=== PATIENT | male | born 1965 | race Caucasian/White ===

== ENCOUNTER 2017-03-30 07:42 | Day surgery (SDC) | payer BC ==
[2017-03-26 09:06] LABS: HEMATOCRIT 46.6 % (40.0-51.0)
[2017-03-26 09:16] LABS: BUN (BLOOD UREA NITROGEN) 18 MG/DL (6-23); CHLORIDE, SERUM 106 MMOL/L (96-112); CO2 (CARBON DIOXIDE) 26 MMOL/L (24-34); CREATININE 0.96 MG/DL (0.70-1.30); GFR AFRICAN AMERICAN 104 ML/MIN (>=60); GFR NON AFRICAN AMERICAN 90 ML/MIN (>=60); GLUCOSE, SERUM 90 MG/DL (60-99); SODIUM, SERUM 141 MMOL/L (135-148)
[2017-03-26 09:17] LABS: CALCIUM, SERUM 9.6 MG/DL (8.5-10.4); POTASSIUM, SERUM 4.7 MMOL/L (3.5-5.3)
[2017-03-27 11:08] LABS: A/G RATIO 1.8 (0.7-1.9); ALBUMIN 4.8 G/DL (3.5-5.0); ALKALINE PHOSPHATASE 56 U/L (45-117); GLOBULIN 2.7 G/DL (2.5-4.1); SGOT(AST) 17 U/L (5-40); SGPT(ALT) 25 U/L (5-65); TOTAL BILIRUBIN 0.4 MG/DL (0-1.2); TOTAL PROTEIN 7.5 G/DL (6.0-8.5)
--- NOTE | ~2017-03-30 | OP ---
Record Of Operation [facility] [address] [place]. [address] NAME: ISIDRA DEJESUS : 63 STATUS : [facility]#: [id number] AGE: 52 ADM/REG DATE : 03/30/17 MR#: [id number] REPORT SERV DATE: 03/31/17 DICTATED BY: JOSE HBARDWAJ DATE: 03/31/17 REPORT STATUS : Draft TRANSCRIBED BY: MODL DATE: 03/31/17 DATE OF PROCEDURE: 03/30/2017 PREOPERATIVE DIAGNOSES: 1. Left inguinal hernia. 2. Chronic cholecystitis with cholelithiasis. POSTOPERATIVE DIAGNOSES: 1. Left inguinal hernia. 2. Right inguinal hernia. 3. Chronic cholecystitis with cholelithiasis. PROCEDURES: 1. Laparoscopic reduction and mesh patch repair of bilateral inguinal hernia. 2. Laparoscopic cholecystectomy (two site). DESCRIPTION OF OPERATIVE PROCEDURE: The patient was brought to the operating suite, placed in supine position, underwent satisfactory general endotracheal anesthesia without incident. The skin of the abdomen was scrubbed, prepped, and draped in usual sterile fashion. 0.5% Marcaine with epinephrine was utilized as supplemental local anesthesia at all intended trocar sites. Initially, an infraumbilical incision was performed dissecting through the skin and subcutaneous tissue to the umbilical fascia. Inferolateral retraction of the left exposing the medial aspect of the left anterior rectus sheath. This in turn was incised longitudinally and the medial aspect of the left rectus muscle itself was identified and retracted exposing the left posterior rectus sheath. A preperitoneal dissection balloon was inserted posterior to the left rectus sheath to the level of the pubic tubercle. It was insufflated under direct camera visualization creating a preperitoneal dissection plane bilaterally. This balloon was then replaced with a structural balloon and CO2 was insufflated into the preperitoneal space for pressures of 15 mmHg throughout the case. After adequate insufflation pressures were obtained, two additional 5 mm trocars were placed in the infraumbilical midline under direct visualization. Completion of the preperitoneal dissection was performed bilaterally revealing on the left an incarcerated direct defect consistent preperitoneal fat, on the right a small indirect defect. The cord structures, inferior epigastric vessels, and Hesselbach triangle were skeletonized and then two separately placed pieces of Bard 3DMax polypropylene mesh size large oriented left and right were placed in the preperitoneal space after dipping them in local anesthesia. The patches underwent fixation to the posterior rectus sheath and the pubic tubercle and then lateral to the transverse abdominis musculature with multiple firings of the 5 mm SorbaFix Tacker. This was successful in securing the mesh over the direct defect on the left and the indirect defect on the right. The preperitoneal space was allowed to collapse and CO2 was milked from the preperitoneal space after removing the trocars and assuring hemostasis. Record Of Operation [facility] [address] [place]. [address] NAME: ISIDRA DEJESUS : 63 STATUS : [facility] PAT#: [id number] AGE: 52 ADM/REG DATE : 03/30/17 MR#: [id number] REPORT SERV DATE: 03/31/17 DICTATED BY: JOSE BHARDWAJ DATE: 03/31/17 REPORT STATUS : Draft TRANSCRIBED BY: LUPE DATE: 03/31/17 Next, attention was turned to the laparoscopic cholecystectomy. The posterior rectus sheath on the left was identified and elevated and a disposable Veress insufflation needle was inserted in the peritoneal cavity with intraperitoneal tip location ascertained using the saline hanging drop method. CO2 was insufflated into the peritoneal cavity proper for pressures of 15 mmHg. After adequate insufflation pressure was obtained, the Veress needle was removed and a 10/11 mm trocar was inserted into the peritoneal cavity following which a rigid forward-viewing 10 mm laparoscope was inserted visualization intraabdominal parietes revealed no evidence of injury from initial insufflation or puncture. Attention was turned to the upper abdomen where an additional 5 mm trocar was placed to the right of falciform ligament and an additional 5 mm grasping instrument inserted next to the trocar placed in the umbilical area. The gallbladder was somewhat thickened and chronically inflamed. It had no adhesions to it. The fundus and body of the gallbladder were grasped and elevated sequentially and dissection triangle of Calot was successful in identifying and skeletonizing the cystic duct, cystic duct and common duct junction, as well as the cystic artery. Both of these structures were controlled with multiple applications of the Weck 5 mm polymer clip system and divided, and then using cautery, the gallbladder was dissected free from the subhepatic space with assurance of hemostasis. Next, the camera was switched to the 5 mm epigastric port. The gallbladder was grasped by its neck and withdrawn through the umbilicus. It was opened and aspirated free of bile and then delivered through the umbilical fascia with a single stone CO2 was allowed to egress from the peritoneal cavity. Following this, the posterior rectus sheath on the left and then the anterior rectus sheath on the left were closed in two separate layers with a 0 Vicryl [id number] suture. The subcutaneous tissue was irrigated at all sites, which were then closed with interrupted 3-0 Vicryl and then running subcuticular stitch 4-0 Vicryl for the skin. Dermabond skin adhesive placed at all sites. The patient tolerated the procedure well and was returned to PACU in stable condition. At the termination of the procedure, sponge, needle, lap, and instrument counts were correct x3. ESTIMATED BLOOD LOSS: From both procedures was 10-15 mL. WR/MODL Jose Bhardwaj M.D. / [id number] CC: Tabitha Dupont M.D.
[~2017-03-30 07:42] MED LIST: ALTA2.5 PO; ASAB PO; BRILINTA90 MG PO; IBU-200200 MG PO; LIPITOR40 PO; NITROSTAT0.4 MG SL; PRILOSEC40 MG PO; TOPXL100 PO; VITAMIN D31000 UNIT PO
== END 2017-03-30 15:18 | disposition home or self-care (01) ==
LOC: SDC 07:42
PROVIDERS: Specialist
PROC: 0FT44ZZ Resection of Gallbladder, Percutaneous Endoscopic Approach (ICD-10-PCS; principal; 2017-03-30 07:45)
PROC: 0YUA4JZ Supplement Bilateral Inguinal Region with Synthetic Substitute, Percutaneous Endoscopic Approach (ICD-10-PCS; 2017-03-30 07:45)
DX: K80.10 Calculus of gallbladder with chronic cholecystitis without obstruction (principal); K40.20 Bilateral inguinal hernia, without obstruction or gangrene, not specified as recurrent; I25.10 Atherosclerotic heart disease of native coronary artery without angina pectoris; I10 Essential (primary) hypertension; Z95.5 Presence of coronary angioplasty implant and graft; E78.5 Hyperlipidemia, unspecified; Z87.891 Personal history of nicotine dependence; Z79.82 Long term (current) use of aspirin; Z79.899 Other long term (current) drug therapy
CPT/HCPCS: 80048; 80053; 85014; 85018; 88304; 93005; A9270-GY; C1726; C1727; C1781; J0690; J1170; J2250; J2405; J2710; J3010